=== PATIENT | male | born 1975 | race Caucasian/White ===

== ENCOUNTER 2016-12-13 06:50 | Emergency (ER) | payer BC ==
--- NOTE | 2016-12-13 16:10 | ER ---
ADMIT: 12/13/2016 RM/LOC: ER [facility] MR#: [id number] [id number] [id number] [address] [place] [address] Emergency Room Report SEX: M AGE: 41 : 1975 DATE: 12/13/2016 TIME: 0650 hours. Please refer to my T-sheet for complete H and P. HISTORY OF PRESENT ILLNESS: Briefly, the patient is a 41-year-old, comes in with inflammation around his right eye, it has been there for two days. He actually went in to Urgent Care, they started him on antibiotics, he had his first dose last night. He comes in again this morning saying he wanted to be looked at. It is not involving the eye, just around the eye, mostly lower. Denies any trauma. PHYSICAL EXAMINATION: VITAL SIGNS: Stable. He is afebrile. HEENT: Right eye has some periorbital inflammation, mostly infraorbital. There are no vesicles. It is warm to the touch, consistent with a periorbital cellulitis. EMERGENCY DEPARTMENT COURSE: Uneventful. ASSESSMENT: Right periorbital cellulitis. PLAN: Continue Augmentin, he has only had one dose last night. I am going to add Bactrim DS b.i.d. x7 days. Return if worse. Follow up with Dr. Lopez as needed. Otoniel Kern MD/ dilip JOB #: [id number] CC: Otoniel Kern MD, Attending Physician
== END 2016-12-13 08:05 | disposition home or self-care (01) ==
LOC: ER 06:50
DX: H05.011 Cellulitis of right orbit (principal); Z79.899 Other long term (current) drug therapy